=== PATIENT | female | born 1990 | race Caucasian/White ===

== ENCOUNTER 2016-09-27 17:15 | Emergency (ER) | payer SELFPAY ==
[2016-09-27 19:32] VITALS: BP 109/69
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
--- NOTE | 2016-09-27 20:28 | RAD ---
INDICATION: Left rib injury. TECHNIQUE: 3 views of the left ribs were obtained. FINDINGS: No fracture or significant focal osseous abnormality is seen. IMPRESSION: NO EVIDENCE FOR FRACTURE.
== END 2016-09-27 20:46 | disposition home or self-care (01) ==
LOC: UCCORT 17:15
DX: S20.212A Contusion of left front wall of thorax, initial encounter (principal); V43.52XA Car driver injured in collision with other type car in traffic accident, initial encounter; Y93.89 Activity, other specified; Y92.410 Unspecified street and highway as the place of occurrence of the external cause
CPT/HCPCS: 99211; G0463

== ENCOUNTER 2018-10-24 08:11 | Emergency (ER) | payer OTHER ==
[2018-10-24 08:33] VITALS: BP 104/65
--- NOTE | 2018-10-24 08:51 | UC ---
[facility] HPI - HPI Summary HPI Summary: 28 yo female with left TMJ pain and crepitus x 1 week no remembered trauma hurts to chew - History of Current Complaint Chief Complaint: [facility] Stated Complaint: LEFT SIDE JAW PAIN Time Seen by Provider: 10/24/18 08:41 Hx Obtained From: Patient Hx Last Menstrual Period: unknown Onset/Duration: Gradual Onset, Lasting Days Severity: Moderate Pain Intensity: 6 Pain Scale Used: 0-10 Numeric Aggravating Factor(s): Chewing Alleviating Factor(s): OTC Meds Related History: TMJ Dysfunction - as young teen - Allergies/Home Medications Allergies/Adverse Reactions: Allergies Allergy/AdvReac Type Severity Reaction Status Date / Time No Known Allergies Allergy Verified 10/24/18 08:31 Home Medications: Home Medications Naproxen [Naproxen 500 mg tab] 500 mg PO BID PRN 10/24/18 [History Confirmed 09/13] PMH/Surg Hx/FS Hx/Imm Hx Previously Healthy: Yes - Surgical History Surgical History: Yes Surgery Procedure, Year, and Place: c-sections; appy; wisdom teeth; T&A; right breast tumor (benign) - Family History Known Family History: Positive: None, Other - healthy family Negative: Cardiac Disease, Diabetes - Social History Alcohol Use: None Substance Use Type: None Smoking Status (MU): Never Smoked Tobacco - Immunization History Most Recent Tetanus Shot: within 2 years. Review of Systems All Other Systems Reviewed And Are Negative: Yes Constitutional: Positive: Negative Skin: Positive: Negative Eyes: Positive: Negative ENT: Positive: Negative Respiratory: Positive: Negative Cardiovascular: Positive: Negative Gastrointestinal: Positive: Negative Genitourinary: Positive: Negative Motor: Positive: Negative Neurovascular: Positive: Negative Musculoskeletal: Positive: Arthralgia - Left TMJ Neurological: Positive: Negative Psychological: Positive: Negative Physical Exam Triage Information Reviewed: Yes Appearance: Well-Appearing, No Pain Distress, Well-Nourished Vital Signs: Initial Vital Signs Temp 97.7 F 10/24/18 08:30 Pulse 76 10/24/18 08:30 Resp 16 10/24/18 08:30 BP 104/65 10/24/18 08:30 Pulse Ox 100 10/24/18 08:30 Vital Signs Reviewed: Yes Eyes: Positive: Conjunctiva Clear ENT: Positive: Hearing grossly normal, Other - Left tmj crepitus/tenderness. Negative: Nasal congestion, Nasal drainage, Tonsillar swelling, Tonsillar exudate, Trismus, Muffled voice, Hoarse voice Dental: Negative: Gross Decay/Caries @, Dental Fracture @, Abscess @ Neck: Positive: Supple, Nontender, No Lymphadenopathy Respiratory: Positive: Lungs clear, Normal breath sounds, No respiratory distress Cardiovascular: Positive: RRR, No Murmur Musculoskeletal: Positive: ROM Intact, No Edema Neurological: Positive: Alert Psychological Exam: Normal Skin Exam: Normal Dental Complaint Course/Dx - Differential Dx/Diagnosis Provider Diagnosis: Disorder of left temporomandibular joint Discharge - Sign-Out/Discharge Documenting (check all that apply): Patient Departure All imaging exams completed and their final reports reviewed: No Studies - Discharge Plan Condition: Stable Disposition: HOME Patient Education Materials: Temporomandibular Disorder (ED), Ice Pack Application (ED) Referrals: Beth Campos PA [Primary Care Provider] - If Needed Additional Instructions: SEE DENTIST NEXT WEEK PLANNED Ice 3-4 x day Soft no chew diet for 2-3 days continue naproxsyn - Billing Disposition and Condition Condition: STABLE Disposition: Home
== END 2018-10-24 08:54 | disposition home or self-care (01) ==
LOC: UCCORT 08:11
DX: M25.9 Joint disorder, unspecified (principal); M26.602 Left temporomandibular joint disorder, unspecified
CPT/HCPCS: 99211; G0463